=== PATIENT | female | born 1945 | race African-American/Black ===

== ENCOUNTER 2018-09-02 08:12 | Emergency (ER) | payer OTHER ==
[~2018-09-02] VITALS: Ht 162.6 cm; Wt 90.7 kg
[~2018-09-02 08:12] MED LIST: ALLEGRA ALLERG180 MG PO; DILTIAZEM 24HR240 M2 PO; DILTIAZEM 24HR240 MG PO; LEVOTHYROXINE0.05 MG PO; LOMOTIL TABLET1 EACH PO; LOVASTATIN 20 M20 MG PO; MEDROLDOSEPACK PO; NORCO 5-325 TA1 EACH PO; TIZANIDINE HCL4 MG PO; ZOFRAN 4 MG ORAL4 MG PO
[2018-09-02] MEDS ORDERED: ZETIA10 MG PO (08:50)
[2018-09-02] MEDS ORDERED: LIPITOR10 MG PO (08:51)
[2018-09-02 09:13] LABS: URINE BILIRUBIN NEGATIVE (Negative); URINE BLOOD NEGATIVE (Negative); URINE CLARITY SL CLOUDY; URINE COLOR YELLOW; URINE GLUCOSE-RANDOM* NEGATIVE (Negative); URINE KETONES NEGATIVE (Negative); URINE LEUKOCYTES-REFLEX TRACE (Negative); URINE NITRITE-REFLEX NEGATIVE (Negative); URINE PROTEIN (DIPSTICK) NEGATIVE (Negative); URINE SPECIFIC GRAVITY 1.015 (1.005-1.035); URINE UROBILINOGEN 0.2 E.U./dl (0.2-1.0)
[2018-09-02 09:36] LABS: HEMATOCRIT 36.4 % (37.0-47.0); MCH 30.7 pg (26.0-34.0); MCHC 33.1 g/dL (28.0-37.0); MCV 92.6 fL (80.0-100.0); RBC 3.93 mil/uL (4.20-5.00); WBC 7.7 thou/uL (4.0-11.0)
[2018-09-02 09:48] LABS: ANION GAP 9 mmol/L (7-16); BUN 16 mg/dL (7-18); CALCIUM 9.6 mg/dL (8.5-10.1); CHLORIDE 108 mmol/L (98-107); CO2 27 mmol/L (21-32); CREATININE 1.1 mg/dL (0.6-1.0); GLUCOSE 109 mg/dL (74-106); POTASSIUM 3.8 mmol/L (3.5-5.1); SODIUM 144 mmol/L (136-145)
[2018-09-02 09:57] LABS: SQUAMOUS 4-10 Moderate /LPF (0-3)
[2018-09-02 09:57] LABS: TROPONIN-I <0.06 ng/mL (<0.06)
[2018-09-02 09:58] LABS: BACTERIA 1-9 Few /HPF (None Seen); CASTS None Seen /LPF (None Seen); CRYSTALS None Seen /LPF (None Seen); URINE RBC None Seen /HPF (0-2); URINE WBC 0-5 Rare /HPF (0-5)
[2018-09-02 10:57] VITALS: BP 136/72
--- NOTE | 2018-09-03 09:30 | EKG ---
[place] [address] [facility] [place] [address] ELECTROCARDIOGRAM REPORT Name: SCOTTIE SHERMAN Room #: [facility] [id number] ������������������ Admission: 09/02/18 ������������������ Attend Phys: Discharge: 09/02/18 ������������������ Date of : 47 Report #: [id number] ����������������������������������������������������������������� [id number] THIS REPORT FOR: //name// [facility] ED Test Date: 2018-09-02 Test Time: 08:44:25 Pat Name: [facility] Department: Room: Gender: F Bag Adjuster: NERY : 1945 Requested By: Angel Hawley Order Number: [id number] MD: Marky Raines Measurements Intervals Aline Rate: 61 P: 37 ID: [id number] QRS: 34 QRSD: 104 T: 46 QT: 425 QTc: 428 Interpretive Statements Sinus rhythm No significant abnormality Compared to ECG 04/04/2015 14:06:20 No significant changes Electronically Signed On 09-03-2018 9:30:13 CDT by Marky Raines [email or web address] ��������������������������������������������� <ELECTRONICALLY SIGNED> ���������������������������������������� By: Marky Raines MD, [facility] ��������������������������������������������� 09/03/18 0930 0844 0844 Marky Raines MD, FACC /EPI
== END 2018-09-02 10:56 | disposition home or self-care (01) ==
LOC: ER 08:12
PROVIDERS: Emergency Medicine
DX: R42 Dizziness and giddiness (principal); I10 Essential (primary) hypertension; E03.9 Hypothyroidism, unspecified; E78.00 Pure hypercholesterolemia, unspecified; Z88.2 Allergy status to sulfonamides

== ENCOUNTER → 2020-07-24 | Outpatient (CLI) | payer OTHER ==
[~2020-07-24] MED LIST changes: +CARDIZEM CD240 MG PO; +DILTIAZEM 24HR240 M1 PO; +LIPITOR10 MG PO; +LISINOPRIL-HCT1 EAC2 PO; +MULTI VITAMIN1 EACH PO; +PROBIOTIC1 EAC7 PO; +VITAMIN D350 MC3 PO; +ZETIA10 MG PO
== END ==
LOC: LAB 09:23
PROVIDERS: ATTEND Student in an Organized Health Care Education/Training Program
DX: Z01.812 Encounter for preprocedural laboratory examination (principal); Z20.822 Contact with and (suspected) exposure to COVID-19

== ENCOUNTER → 2020-07-26 | Outpatient (CLI) | payer OTHER ==
[~2020-07-26] VITALS: Ht 165.1 cm; Wt 89.4 kg
--- NOTE | 2020-07-27 12:53 | P ---
[facility] [address] PROCEDURE REPORT Name: SCOTTIE SHERMAN Room #: REG GADIELPerla Escalante#: [id number] Admission: 07/26/20 Attend Phys: Stewart Nuno Discharge: Date of : 47 Report #: [id number] THIS REPORT FOR: cc: Vera Duarte,Stewart Mendez MD ~ DOC #: [id number] cc: Vera Trinh MD DATE OF SERVICE: 07/26/2020 PROCEDURE PERFORMED: Colonoscopy. HISTORY OF PRESENT ILLNESS: The patient is a 75-year-old female with a history of anemia. I do not have recent labs and she is unsure of her recent lab values as well. She denies any obvious bright red blood per rectum or melena. No family history of colon cancer. She denies any abdominal pain. She is not on any NSAIDs. Plan is for colonoscopy. DESCRIPTION OF PROCEDURE: The risks and benefits of the procedure were explained to the patient, those risks including but not limited to bleeding, perforation and the risk of sedation. She understood these risks and gave informed consent. Sedation was given using propofol per anesthesia. Next, a digital rectal exam was initially performed, which was normal. Next, using a standard Olympus colonoscope, scope was placed in the patient's anus and advanced under direct vision to the cecum. The overall prep was excellent. The cecum and ileocecal valve were normal in appearance. Ascending, transverse and descending colon were normal. Multiple small diverticula were noted in the sigmoid colon. No evidence of inflammation, otherwise normal. The rectal mucosa was normal. On retroflexion, small nonbleeding internal hemorrhoids were noted. The scope was then withdrawn and the procedure terminated. The patient tolerated the procedure well. IMPRESSION: 1. Sigmoid diverticulosis. 2. Internal hemorrhoids. 3. Otherwise, normal colonoscopy. RECOMMENDATIONS: 1. Repeat colonoscopy in 10 years. 2. Monitor hemoglobin. Consider Hemoccult testing stools. Consider oral iron therapy. Thank you for allowing me to participate in her care. [address] [address] PROCEDURE REPORT Name: LANESCOTTIE M Room #: REG [facility] Ava#: [id number] Admission: 07/26/20 Attend Phys: Stewart Nuno Discharge: Date of : 47 Report #: [id number] Stewart Trinh MD [facility] <ELECTRONICALLY SIGNED> By: Stewart Trinh MD 07/27/20 1253 1013 46 Stewart Trinh MD /nt
== END | disposition home or self-care (01) ==
LOC: GI 09:13
PROVIDERS: ATTEND Specialist
DX: D64.9 Anemia, unspecified (principal); K57.30 Diverticulosis of large intestine without perforation or abscess without bleeding; K64.8 Other hemorrhoids; I12.9 Hypertensive chronic kidney disease with stage 1 through stage 4 chronic kidney disease, or unspecified chronic kidney disease; N18.30 Chronic kidney disease, stage 3 unspecified; E78.00 Pure hypercholesterolemia, unspecified; E03.9 Hypothyroidism, unspecified; E78.5 Hyperlipidemia, unspecified; Z98.890 Other specified postprocedural states; Z79.899 Other long term (current) drug therapy; Z98.51 Tubal ligation status; Z88.2 Allergy status to sulfonamides
CPT/HCPCS: 62110; 62900

== ENCOUNTER → 2020-09-18 | Outpatient (CLI) | payer OTHER | LOC: ULTRA 09:01 | PROVIDERS: ATTEND Internal Medicine | DX: N28.1 Cyst of kidney, acquired (principal); N26.1 Atrophy of kidney (terminal); N18.31 Chronic kidney disease, stage 3a ==